=== PATIENT | male | born 1950 | race Caucasian/White ===

== ENCOUNTER 2021-03-06 09:28 | Emergency (ER) | payer MEDICARE, OTHER, SELFPAY ==
[2021-03-06 09:37] VITALS: BP 125/70; PULSE 49; RESP 18; TEMP 36.9; O2SAT 97; BMI 30.6
--- NOTE | 2021-03-06 09:51 | W.ED.DENTAL ---
HPI - Dental/Oral General: Chief complaint: Dental/Oral Stated complaint: GUM PAIN Time Seen by Provider: 03/06/21 09:30 History of Present Illness: HPI Narrative: 70-year-old male presents emergency room with right-sided lower jaw pain. He has an infected tooth is not been able to see any but he is traveling in the area from [place]. Has severe pain no difficulty with speech or swallowing no reported fever. MD Complaint: tooth pain Onset (ago): hour(s) Duration: constant Severity: severe Relieving factors: nothing Exacerbating factors: chewing Context: history of dental caries Associated symptoms: Denies ear or mastoid pain, fever(s), gum swelling, odynophagia, sore throat or tongue swelling Treatment prior to arrival: none Review of Systems Const: Denies: fever(s) ENMT: Denies: odynophagia or ear or mastoid pain Card: Denies: chest pain, edema, dyspnea on exertion or orthopnea Resp: Denies: dyspnea, productive cough or non-productive cough GI: Denies: abdominal pain, nausea, vomiting, hematemesis, coffee ground emesis, diarrhea, constipation, bloating, hematochezia or melena : Denies: flank pain, dysuria, urinary frequency or urinary urgency Skin/Breast: Denies: rash or pruritus All/Imm: Denies: tongue swelling Physical Exam Const: COMMON NORMALS: no acute distress GENERAL APPEARANCE: cooperative and comfortable ORIENTATION/CONSCIOUSNESS: Yes awake, Yes oriented to person, Yes oriented to place and Yes oriented to time HENMT: COMMON NORMALS: normocephalic, atraumatic, hearing grossly normal bilaterally, external ears normal, EAC's normal, TM's normal bilaterally, Normal nasal mucous membranes and turbinates present, moist oral mucous membranes and oropharynx normal HEAD & SCALP: normocephalic and atraumatic NOSE: Normal nasal mucous membranes and turbinates present EXTERNAL EAR: Yes external ears normal EXTERNAL AUDITORY CANAL: EAC's normal TYMPANIC MEMBRANE: TM's normal bilaterally OTHER: Poor dentition with mild gum swelling on the right lower side there is some swelling of the cheek there is no palpable mass no stridor no significant cervical lymphadenopathy Eye: COMMON NORMALS: Equal, round and reactive pupils present, EOMs intact bilaterally, conjunctivae normal and no scleral icterus CONJUNCTIVA: Yes conjunctivae normal PUPIL: Yes Equal, round and reactive pupils present Neck/C-Spine: COMMON NORMALS: full ROM, no lymphadenopathy, supple and no JVD Lymph: LYMPHATIC: no lymphadenopathy noted and no lymphedema noted Resp: COMMON NORMALS: normal respiratory effort, No retractions, No use of accessory muscles and clear to auscultation bilaterally AUSCULTATION: clear to auscultation bilaterally Cardio: COMMON NORMALS: no JVD, regular rate, regular rhythm and No murmurs present (Cardio) RATE: regular rate RHYTHM: regular rhythm GI: COMMON NORMALS: Soft to palpation and No hepatosplenomegaly present AUSCULTATION: Yes normoactive bowel sounds PALPATION: Yes Soft to palpation, No Tenderness to palpation present (GI), No Guarding due to palpation present (GI) and Yes No hepatosplenomegaly present Extremity: COMMON NORMALS: normal to inspection, capillary refill normal, no clubbing, cyanosis or edema, no calf tenderness and no pedal edema Neuro: SENSORIUM/ORIENTATION: Yes oriented to person, Yes oriented to place and Yes oriented to time Skin: COMMON NORMALS: no rashes or lesions noted GENERAL SKIN EXAM: no rashes or lesions noted Course Vital Signs: Vital signs: Vital Signs Temperature 98.4 F 03/06/21 09:37 Pulse Rate 63 03/06/21 10:07 Respiratory Rate 18 03/06/21 10:07 Blood Pressure 125/70 03/06/21 10:07 Pulse Oximetry 98 03/06/21 10:07 MDM - Dental/Oral MDM Narrative: Medical decision making narrative: Oral antibiotics and pain control encourage follow-up with dentist soon as he is able for definitive care. Discharge Plan Discharge Patient Disposition: Home Clinical Impression: Dental caries Condition: Stable Prescriptions: New Augmentin 875-125 mg tablet 1 tab PO BID Qty: 10 RF: 0 hydrocodone-acetaminophen 5-325 mg tablet 1 tab PO Q6H PRN (Reason: pain) Qty: 15 RF: 0 Discharge Orders: Discharge ED (Routine); Ordered 03/06/21 Ordered By: Devante Miller Discharge Diet: Soft Mechanical Discharge Activity: Resume usual activity Patient Instructions: Opioid Safety Activity Restrictions/Additional Instructions: Follow-up with dentist as soon as you are able. Coding Level of Care Code ED Roving Weight Gauger for Chacho Delgado
[2021-03-06 10:07] VITALS: BP 125/70; PULSE 63; RESP 18; O2SAT 98
== END 2021-03-06 10:09 | disposition home or self-care (01) ==
PROVIDERS: Emergency Provider Family Medicine
DX: K02.9 Dental caries, unspecified (principal)
CPT/HCPCS: 99281

== ENCOUNTER 2025-05-13 07:43 | Emergency (ER) | payer MEDICARE, OTHER, SELFPAY ==
[2025-05-13 07:46] VITALS: BP 162/97; PULSE 63; RESP 18; TEMP 36.7; O2SAT 96; BMI 29.2
--- NOTE | 2025-05-13 07:57 | W.ED.DENTAL ---
HPI - Dental/Oral General: Chief complaint: Dental/Oral Stated complaint: facial swelling Time Seen by Provider: 05/13/25 07:55 History of Present Illness: 74-year-old male presents to the emergency room with complaint of facial swelling and dental pain. Patient has severe dental issues missing multiple teeth he has as swelling along the maxilla IOS evaluated today where she had markedly overnight. No fever sweats or chills. Noticeable swelling on the upper portion of the cheek on the left side of his face. Associated symptoms: Denies fever(s) Related Data Previous Rx's ?Medication ?Instructions ?Recorded amoxicillin 875 mg-potassium 1 tab PO BID #20 tabs 05/13/25 clavulanate 125 mg tablet hydrocodone 5 mg-acetaminophen 325 1 tab PO Q6H PRN pain #10 tabs 05/13/25 mg tablet Allergies Allergy/AdvReac Type Severity Reaction Status Date / Time meperidine (From Demerol) Allergy ALGY-Anaphy Verified 05/13/25 07:48 laxis Review of Systems Const: Denies: fever(s) or chills Card: Denies: chest pain Resp: Denies: dyspnea GI: Denies: abdominal pain : Denies: dysuria, urinary frequency or urinary urgency Musc: Denies: neck pain or back pain Skin/Breast: Denies: rash Physical Exam Const: COMMON NORMALS: no acute distress GENERAL APPEARANCE: cooperative and comfortable ORIENTATION/CONSCIOUSNESS: Yes awake, Yes oriented to person, Yes oriented to place and Yes oriented to time HENMT: COMMON NORMALS: normocephalic, atraumatic and hearing grossly normal bilaterally HEAD & SCALP: normocephalic and atraumatic OTHER: Moderate facial swelling upper portion of the cheek and lower eyelid on the left. No palpable abscess or mass 2 broken off teeth at the gumline with some mild swelling and irritation no active drainage Resp: COMMON NORMALS: normal respiratory effort, No retractions, No use of accessory muscles and clear to auscultation bilaterally AUSCULTATION: clear to auscultation bilaterally Cardio: COMMON NORMALS: regular rate, regular rhythm and No murmurs present (Cardio) RATE: regular rate RHYTHM: regular rhythm Extremity: COMMON NORMALS: normal to inspection, capillary refill normal, no clubbing, cyanosis or edema, no calf tenderness and no pedal edema Neuro: SENSORIUM/ORIENTATION: Yes oriented to person, Yes oriented to place and Yes oriented to time Skin: COMMON NORMALS: no rashes or lesions noted GENERAL SKIN EXAM: no rashes or lesions noted Course Vital Signs: Vital signs: Vital Signs Temperature 98.1 F 05/13/25 07:46 Pulse Rate 68 05/13/25 08:26 Respiratory Rate 18 05/13/25 07:46 Blood Pressure 157/72 05/13/25 08:26 Pulse Oximetry 98 05/13/25 08:26 Oxygen Delivery Me thod Room Air 05/13/25 07:46 MDM - Dental/Oral Medical Decision Making Patient has dental infection from remnant of tooth in the maxilla on the left. Started on Augmentin 875 twice daily gave pain medications encouraged to follow-up with dentist for definitive care All radiology interpretation(s) finalized by discharge Discharge Plan Discharge Patient Disposition: Home Clinical Impression: Dental abscess Condition: Stable Prescriptions: New amoxicillin-pot clavulanate 875-125 mg tablet 1 tab PO BID Qty: 20 0RF hydrocodone-acetaminophen 5-325 mg tablet 1 tab PO Q6H PRN (Reason: pain) Qty: 10 0RF Discontinued amoxicillin-pot clavulanate [Augmentin] 875-125 mg tablet 1 tab PO BID Qty: 10 0RF hydrocodone-acetaminophen 5-325 mg tablet 1 tab PO Q6H PRN (Reason: pain) Qty: 15 0RF Discharge Orders: Discharge ED (Routine); Ordered 05/13/25 Ordered By: Devante Miller Discharge Diet: Soft Mechanical Discharge Activity: Increase activity as tolerated Patient Instructions: Opioid Safety, Pain Management, Patient Portal & Megan Instructions Activity Restrictions/Additional Instructions: Thank you for choosing [facility] for your healthcare needs today. It is very important that you follow up as instructed or that you return to the Emergency Department should you have concerns or if your condition changes or worsens in any way. You were seen in the emergency room for facial swelling. You have an infection of along the gumline where there were fragments of teeth still remaining in the gumline on the upper jaw. Recommend starting Augmentin 875 1 tablet twice a day for 10 days given hydrocodone for pain. You should follow-up with dentist as soon as you are able for definitive treatment of the infection. Print Language: Nigerian Coding Level of Care Code ED Clinical Staff Rn for Chacho Delgado
[2025-05-13 08:26] VITALS: BP 157/72; PULSE 68; O2SAT 98
== END 2025-05-13 08:27 | disposition home or self-care (01) ==
PROVIDERS: Emergency Provider Family Medicine
DX: K04.7 Periapical abscess without sinus (principal)
CPT/HCPCS: 99283